=== PATIENT | male | born 1950 | race Caucasian/White ===

== ENCOUNTER 2017-08-07 17:49 | Emergency (ER) | payer OTHER ==
--- NOTE | 2017-08-07 18:02 | CPEKG ---
Heart Rate: 93 RR Interval: 645 P-R Interval: 152 QRSD Interval: 92 QT Interval: 356 QTC Interval: 443 P [place]: 50 QRS [place]: 47 T Wave [place]: -13 EKG Severity - ABNORMAL ECG - EKG Impression: SINUS RHYTHM EKG Impression: PROBABLE LEFT ATRIAL ABNORMALITY EKG Impression: BORDERLINE INFERIOR Q WAVES EKG Impression: BORDERLINE T ABNORMALITIES, INFERIOR LEADS Electronically Signed By: Desmond Burton 07-Aug-2017 18:58:46
[2017-08-07] MEDS ORDERED: IPRATROPIUM/ALBUTEROL 3 ML DEYVIAL IH ONE (18:50)
[2017-08-07] MEDS ORDERED: AZITHROMYCIN 250 MG TAB PO ONE (18:50)
[2017-08-07] MEDS ORDERED: predniSONE 20 MG TAB PO ONE (18:50)
--- NOTE | 2017-08-07 18:58 | EDPHY ---
H & P Stated Complaint: hypoxia Time Seen by Provider: 08/07/17 17:54 HPI/ROS: CHIEF COMPLAINT: bronchitis HISTORY OF PRESENT ILLNESS: Patient is a 67-year-old man with a history of asthma as well as coronary artery disease who developed a sneeze 2 days ago. Today he has been coughing productive of yellow sputum. He presented to the urgent care or an x-ray performed and he was given a neb. He felt much better and was told the x-ray was negative. They recommended he come here however to have his heart evaluated because of his history of 2 stents. He denies having any chest pain. REVIEW OF SYSTEMS: Constitutional: denies: chills, fever, recent illness, recent injury EENTM: Sneezing, sinus congestion denies: blurred vision, double vision Cardiac: denies: chest pain, irregular heart rate, lightheadedness, palpitations Gastrointestinal/Abdominal: denies: abdominal pain, diarrhea, nausea, vomiting, blood streaked stools Genitourinary: denies: dysuria, frequency, hematuria, pain Musculoskeletal: denies: joint pain, muscle pain Skin: denies: lesions, rash, jaundice, bruising Neurological: denies: headache, numbness, paresthesia, tingling, dizziness, weakness Hematologic/Lymphatic: denies: blood clots, easy bleeding, easy bruising Immunologic/allergic: denies: HIV/AIDS, transplant EXAM: GENERAL: Well-appearing, well-nourished and in no acute distress. HEAD: Atraumatic, normocephalic. EYES: Pupils equal round and reactive to light, extraocular movements intact, sclera anicteric, conjunctiva are normal. ENT: TMs normal, nares patent, oropharynx clear without exudates. Moist mucous membranes. NECK: Normal range of motion, supple without lymphadenopathy or JVD. LUNGS: Breath sounds clear to auscultation bilaterally and equal. No wheezes rales or rhonchi. HEART: Regular rate and rhythm without murmurs, rubs or gallops. ABDOMEN: Soft, nontender, normoactive bowel sounds. No guarding, no rebound. No masses appreciated. BACK: No CVA tenderness, no spinal tenderness, step-offs or deformities EXTREMITIES: Normal range of motion, no pitting or edema. No clubbing or cyanosis. NEUROLOGICAL: Cranial nerves II through XII grossly intact. Normal speech, normal gait. 5/5 strength, normal movement in all extremities, normal sensation PSYCH: Normal mood, normal affect. SKIN: Warm, dry, normal turgor, no visible rashes or lesions. Source: Patient Exam Limitations: No limitations - Personal History Current Tetanus/Diphtheria Vaccine: Unsure Tetanus Vaccine Date: MAY 2013 - Medical/Surgical History Hx Asthma: Yes Hx Chronic Respiratory Disease: Yes Hx Diabetes: No Hx Cardiac Disease: Yes Hx Renal Disease: No Hx Cirrhosis: No Hx Alcoholism: Yes Hx HIV/AIDS: No Hx Splenectomy or Spleen Trauma: No Other PMH: cardiac stents 2012. htn - Family History Significant Family History: No pertinent family hx - Social History Smoking Status: Former smoker Alcohol Use: Sober Constitutional: Initial Vital Signs Temperature (C) 37.6 C 08/07/17 17:50 Heart Rate 96 08/07/17 17:50 Respiratory Rate 18 08/07/17 17:50 Blood Pressure 123/98 H 08/07/17 17:50 O2 Delivery Mode Room Air Allergies/Adverse Reactions: No Known Allergies Allergy (Verified 02/18/16 11:32) Home Medications: Medication Instructions Recorded Lisinopril [Zestril 20 mg (*)] 20 mg PO DAILY 01/07/15 amLODIPine BESYLATE [Norvasc 10 mg 10 mg PO DAILY 01/07/15 (*)] Albuterol [Proventil Inhaler HFA 1 - 2 puffs IH DAILY PRN 02/18/16 (*)] Naproxen Sodium [Aleve 220 MG (*)] 220 mg PO DAILY PRN 02/18/16 Budesonide/Formoterol 160/4.5 2 puffs IH BID #0 mdi 02/19/16 [Symbicort 160-4.5 Mcg Inh (*)] AZITHROMYCIN [Z-PACK] 250 mg PO DAILY #6 tab 08/07/17 Albuterol [Proventil Inhaler] 1 - 2 puffs IH Q4H #1 mdi 08/07/17 predniSONE 60 mg PO DAILY #15 tab 08/07/17 Medical Decision Making - Diagnostics EKG Interpretation: An EKG obtained and was read and documented in trace view. Please see trace view for full reading and report. Sinus rhythm, no acute ischemic changes ED Course/Re-evaluation: Patient is well appearing. He is saturating 91% on room air. He denies chest pain. His EKG is unchanged from previous. He does not suspect that he is having any kind of cardiac issues. I agree that his symptoms seem unremarkable. He is requesting steroids and a Z-Jai. He declines further cardiac workup. 7:30 p.m. the patient is eager to go home. He is saturating 95% on room air. He is asking for prescriptions. He declines further workup or testing or observation. We discussed indications for returning. Differential Diagnosis: Partial list of the Differential diagnosis considered include but were not limited to; asthma exacerbation, bronchitis,, upper respiratory tract infection and although unlikely based on the history and physical exam, I also considered acute coronary disease, dissection. I discussed these differential diagnoses and the plan with the patient as well as the usual and expected course. The patient understands that the diagnosis is provisional and that in medicine we are not always correct and that further workup is often warranted. Usual and customary warnings were given. All of the patient's questions were answered. The patient was instructed to return to the emergency department should the symptoms at all worsen or return, otherwise to followup with the physician as we discussed. - Data Points Medications Given: Discontinued Medications Albuterol/Ipratropium (Duoneb) 3 ml IH EDNOW ONE Stop: 08/07/17 18:51 Last Admin: 08/07/17 19:03 Dose: 3 ml Azithromycin (Zithromax) 500 mg PO EDNOW ONE PRN Reason: Protocol Stop: 18 18:51 Last Admin: 18 19:03 Dose: 500 mg Prednisone (Prednisone) 60 mg PO EDNOW ONE Stop: 08/07/17 18:51 Last Admin: 08/07/17 19:02 Dose: 60 mg Departure - Departure Disposition: Home, Routine, Self-Care Clinical Impression: Bronchitis Asthma exacerbation Qualifiers: Asthma severity: moderate Asthma persistence: unspecified Qualified Code(s): J45.901 - Unspecified asthma with (acute) exacerbation Condition: Fair Instructions: Acute Bronchitis (ED), Bronchospasm (ED) Referrals: Sharonda Jennings MD [Primary Care Provider] - As per Instructions Prescriptions: Albuterol [Proventil Inhaler] 1 - 2 puffs IH Q4H #1 mdi AZITHROMYCIN [Z-PACK] 250 mg PO DAILY #6 tab predniSONE 60 mg PO DAILY #15 tab
[2017-08-07 19:44] VITALS: BP 121/88; PULSE 92; RESP 16; TEMP 98.1; O2SAT 92
== END 2017-08-07 19:44 | disposition home or self-care (01) ==
LOC: EDUNIT#
DX: J20.9 Acute bronchitis, unspecified (principal); J45.901 Unspecified asthma with (acute) exacerbation; I10 Essential (primary) hypertension; Z95.5 Presence of coronary angioplasty implant and graft; Z87.891 Personal history of nicotine dependence
CPT/HCPCS: 93005; 99284; J7512

== ENCOUNTER → 2018-10-09 | Outpatient (CLI) | payer OTHER | LOC: GIMAGING 14:13 → EDSTATUS 15:37 | PROVIDERS: ATTEND Family Medicine | DX: M25.552 Pain in left hip (principal) | CPT/HCPCS: 73502-PO ==